=== PATIENT | female | born 1990 | race African-American/Black ===

== ENCOUNTER 2017-07-29 15:09 | Emergency (ER) | payer OTHER ==
--- NOTE | 2017-07-29 15:27 | PDOC ---
Rapid Medical Evaluation Time Seen by Provider: 07/29/17 15:25 Medical Evaluation: Allergies Allergy/AdvReac Type Severity Reaction Status Date / Time No Known Allergies Allergy Verified 07/29/17 15:25 I have performed a brief in-person evaluation of this patient. The patient presents with a chief complaint of: slipped and fell saturday night , falling on right hand Pertinent physical exam findings: minimal redness and tenderness of right wrist and thenar prominence I have ordered the following: xray right wrist and hand The patient will proceed to the ED for further evaluation.
[2017-07-29 15:28] VITALS: BP 113/75; PULSE 76; TEMP 98.3; BMI 32.3
--- NOTE | 2017-07-29 15:56 | PDOC ---
History of Present Illness - General History Source: Patient Exam Limitations: No Limitations - History of Present Illness Initial Comments: 07/29/17 16:14 The patient is a 26 year old female with no significant PMH who presents to the emergency department with right hand pain since earlier today. The patient reports that she was running up stairs going to work when she fell in front of her job. The patient reports that she fell on palm of her right hand. The patient reports that she did not experience any pain with the initial fall. She reports that after a little while she started to experience associated throbbing secondary to falling on her right hand. The patient reports that she noticed some associated bruising starting to appear as well. The patient reports that she is dominantly right handed. 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 The patient denies ant LOC, dizziness, numbness weakness or tingling sensation. The patient denies any fever, chills, nausea, vomit, diarrhea or constipation. The patient denies any urinary symptoms. The patient denies any other complaints. PAST MEDICAL HISTORY: no significant history PAST SURGICAL HISTORY: no significant history FAMILY HISTORY: no pertinent history SOCIAL HISTORY: Pt is employed. MEDICATIONS: reviewed ALLERGIES: As per nursing notes <Seth Triana - Last Filed: 07/29/17 16:14> <Nithya Garcia - Last Filed: 07/29/17 22:46> - General Chief Complaint: Injury Stated Complaint: FALL/ RT WRIST PAIN Time Seen by Provider: 07/29/17 15:25 Past History <Seth Triana - Last Filed: 07/29/17 16:14> - Past Medical History Asthma: Yes Cancer: No Cardiac Disorders: No COPD: No Diabetes: No HTN: No Seizures: No Thyroid Disease: No - Immunization History Immunization Up to Date: Yes - Suicide/Smoking/Psychosocial Hx Smoking Status: No Smoking History: Never smoked Have you smoked in the past 12 months: No Number of Cigarettes Smoked Daily: 0 Information on smoking cessation initiated: No Hx Alcohol Use: No Drug/Substance Use Hx: No Substance Use Type: None Hx Substance Use Treatment: No <Nithya Garcia - Last Filed: 07/29/17 22:46> - Past Medical History Allergies/Adverse Reactions: Allergies Allergy/AdvReac Type Severity Reaction Status Date / Time No Known Allergies Allergy Verified 07/29/17 15:25 Home Medications: Ambulatory Orders Ibuprofen 800 mg PO TID #30 tablet 07/29/17 Review of Systems - Review of Systems Able to Perform ROS?: Yes Comments:: 07/29/17 16:14 General: No fevers or chills, no weakness, no weight loss HEENT: No change in vision. No sore throat,. No ear pain CardioVascular: No chest pain or shortness of breath Respiratory:No cough, or wheezing. Gastrointestinal: no nausea, vomiting, diarrhea or constipation, No rectal bleeding Genitourinary: No dysuria, hematuria, or frequency Musculoskeletal: (+)right hand pain s/p fall with associated throbbing. Neurologic: No headache, vertigo, dizziness or loss of consciousness Psychiatric: nor depression Skin: No rashes or easy bruising Endocrine: no increased thirst or abnormal weight change Allergic: no skin or latex allergy All other systems reviewed and normal <Seth Triana - Last Filed: 07/29/17 16:14> *Physical Exam - Vital Signs Last Vital Signs Temp Pulse Resp BP Pulse Ox 98.3 F 76 18 113/75 100 07/29/17 15:25 07/29/17 15:25 07/29/17 15:25 07/29/17 15:25 07/29/17 15:25 - Physical Exam Comments: 07/29/17 16:14 GENERAL: The patient is awake, alert, and fully oriented, in no acute distress. HEAD: Normal with no signs of trauma. EYES: Pupils equal, round and reactive to light, extraocular movements intact, sclera anicteric, conjunctiva clear. EXTREMITIES:(+)bruising in the palmar aspect of thenar eminence. Negative watsons exam. Normal range of motion, no edema. NEUROLOGICAL: Normal speech, normal gait. PSYCH: Normal mood, normal affect. SKIN: Warm, Dry, normal turgor, no rashes or lesions noted. <Seth Triana - Last Filed: 07/29/17 16:14> - Vital Signs Last Vital Signs Temp Pulse Resp BP Pulse Ox 98.3 F 76 18 113/75 100 07/29/17 15:25 07/29/17 15:25 07/29/17 15:25 07/29/17 15:25 07/29/17 15:25 <Nithya Garcia - Last Filed: 07/29/17 22:46> Medical Decision Making - Medical Decision Making 07/29/17 15:56 A portion of this note was documented by scribe services under my direction. I have reviewed the details of the note, within reason, and agree with the documentation with the following case summary and management plan written by me. Patient is a 26-year-old female with past medical history of right wrist fracture, R hand dominent, present emergency department today complaining of right hand pain status post mechanical trip and fall with outstretched hand going up stairs. Exam with negative england sign, mild swelling to thenar eminence without tenderness to palpation. X-ray obtained shows no new fracture of the radius. Most likely a sprain at this time. We'll give wrist brace for support. Ortho referral given. Return precautions given. Patient received all discharge instructions and all questions were answered. <Nithya Garcia - Last Filed: 07/29/17 22:46> *DC/Admit/Observation/Transfer - Attestations Scribe Attestion: 07/29/17 16:15 Documentation prepared by Seth Triana, acting as medical van driver for Chuckie Bernstein MD. <Seth Triana - Last Filed: 07/29/17 16:14> - Discharge Dispostion Admit: No <Nithya Garcia - Last Filed: 07/29/17 22:46> Diagnosis at time of Disposition: Wrist pain, right - Discharge Dispostion Disposition: HOME Condition at time of disposition: Stable - Prescriptions Prescriptions: Ibuprofen 800 mg PO TID #30 tablet - Referrals Referrals: Lyle Abdi MD [Staff Physician] - - Patient Instructions Printed Discharge Instructions: DI for Wrist Pain Additional Instructions: Your x-ray today was negative for new fracture. Please wear the wrist brace to help with your pain. Please ice the area for 20 minute intervals for the next 24 hours. You may take Motrin 800 mg every 8 hours as needed for pain. Please follow up with orthopedics this week. A referral has been provided for you. Return to the emergency department if you have worsening pain, numbness and tingling in your hand, or have any changes in your symptoms. - Post Discharge Activity Forms/Work/School Notes: Back to Work
== END 2017-07-29 16:57 | disposition home or self-care (01) ==
LOC: JERFT 15:09
DX: M25.531 Pain in right wrist (principal); W10.8XXA Fall (on) (from) other stairs and steps, initial encounter; Y93.02 Activity, running; Y92.89 Other specified places as the place of occurrence of the external cause; Y99.8 Other external cause status
CPT/HCPCS: 73110-TC-RT-FY; 73130-TC-RT-FY; 99281-25

== ENCOUNTER 2018-01-03 12:01 | Emergency (ER) | payer OTHER ==
[2018-01-03 12:05] VITALS: BP 129/73; PULSE 102; TEMP 98.9; BMI 32.9
[2018-01-03] MEDS ORDERED: IBUPROFEN 100 MG/5 ML UNIT DOSE CUPS ONE (12:40)
[2018-01-03] MEDS ORDERED: IBUPROFEN 600 MG TABLET (FP) PO ONE (12:45)
--- NOTE | 2018-01-03 12:45 | PDOC ---
History of Present Illness - General Chief Complaint: Sore Throat Stated Complaint: SORE THROAT Time Seen by Provider: 01/03/18 12:13 History Source: Patient Exam Limitations: No Limitations Past History - Travel Traveled outside of the country in the last 30 days: No Close contact w/someone who was outside of country & ill: No - Past Medical History Allergies/Adverse Reactions: Allergies Allergy/AdvReac Type Severity Reaction Status Date / Time No Known Allergies Allergy Verified 01/03/18 12:03 Home Medications: Ambulatory Orders Ibuprofen Oral Suspension [Motrin Oral Suspension -] 800 mg PO Q8H #400 ml 01/03 Asthma: Yes Cancer: No Cardiac Disorders: No COPD: No Diabetes: No HTN: No Seizures: No Thyroid Disease: No - Immunization History Immunization Up to Date: Yes - Suicide/Smoking/Psychosocial Hx Smoking Status: No Smoking History: Never smoked Have you smoked in the past 12 months: No Number of Cigarettes Smoked Daily: 0 Hx Alcohol Use: No Drug/Substance Use Hx: No Substance Use Type: None Hx Substance Use Treatment: No Review of Systems - Review of Systems Able to Perform ROS?: Yes Comments:: 01/03/18 14:05 CONSTITUTIONAL: Absent: fever, chills, diaphoresis, generalized weakness, malaise, loss of appetite HEENT: Absent: rhinorrhea, nasal congestion, throat pain, throat swelling, difficulty swallowing, mouth swelling, ear pain, eye pain, visual Changes CARDIOVASCULAR: Absent: chest pain, loss of consciousness, palpitations, irregular heart rate, peripheral edema RESPIRATORY: Absent: cough, shortness of breath, dyspnea with exertion, orthopnea, wheezing, stridor, hemoptysis GASTROINTESTINAL: Absent: abdominal pain, abdominal distension, nausea, vomiting, diarrhea, constipation, melena, hematochezia GENITOURINARY: Absent: dysuria, frequency, urgency, hesitancy, hematuria, flank pain, genital pain MUSCULOSKELETAL: Absent: myalgia, arthralgia, joint swelling SKIN: Absent: rash, itching, pallor HEMATOLOGIC/IMMUNOLOGIC: Absent: easy bleeding, easy bruising, lymphadenopathy, frequent infections ENDOCRINE: Absent: unexplained weight gain, unexplained weight loss, heat intolerance, cold intolerance NEUROLOGIC: Absent: headache, focal weakness or paresthesias, dizziness, unsteady gait, seizure, mental status changes, bladder or bowel incontinence PSYCHIATRIC: Absent: anxiety, depression, suicidal or homicidal ideation, hallucinations. Is the patient limited Bahraini proficient: No *Physical Exam - Vital Signs Last Vital Signs Temp Pulse Resp BP Pulse Ox 98.9 F 102 H 18 129/73 99 01/03/18 12:03 01/03/18 12:03 01/03/18 12:03 01/03/18 12:03 01/03/18 12:03 - Physical Exam Comments: 01/03/18 14:06 GENERAL: Well developed, well nourished. Awake and alert. No acute distress. HEENT: Normocephalic, atraumatic. PERRLA, EOMI. No conjunctival pallor. Sclera are non- icteric. Moist mucous membranes. Oropharynx is clear. NECK: Supple. Full ROM. No JVD. Carotid pulses 2+ and symmetric, without bruits. No thyromegaly. No lymphadenopathy. CARDIOVASCULAR: Regular rate and rhythm. No murmurs, rubs, or gallops. Distal pulses are 2+ and symmetric. PULMONARY: No evidence of respiratory distress. Lungs clear to auscultation bilaterally. No wheezing, rales or rhonchi. ABDOMINAL: Soft. Non-tender. Non-distended. No rebound or guarding. No organomegaly. Normoactive bowel sounds. MUSCULOSKELETAL Normal range of motion at all joints. No bony deformities or tenderness. No CVA tenderness. EXTREMITIES: No cyanosis. No clubbing. No edema. No calf tenderness. SKIN: Warm and dry. Normal capillary refill. No rashes. No jaundice. NEUROLOGICAL: Alert, awake, appropriate. Cranial nerves 2-12 intact. No deficits to light touch and temperature in face, upper extremities and lower extremities. No motor deficits in the in face, upper extremities and lower extremities. Normoreflexic in the upper and lower extremities. Normal speech. Toes are down- going bilaterally. Gait is normal without ataxia. PSYCHIATRIC: Cooperative. Good eye contact. Appropriate mood and affect. *DC/Admit/Observation/Transfer Diagnosis at time of Disposition: Pharyngitis - Discharge Dispostion Disposition: HOME Condition at time of disposition: Stable Decision to Admit order: No - Referrals Referrals: Itz Hwang MD [Staff Physician] - - Patient Instructions Printed Discharge Instructions: DI for Pharyngitis/Tonsillopharyngitis -- Adult Additional Instructions: Your strep test was negative today. You do not need antibiotics at this time. A culture was sent for further evaluation. If you have a positive culture he will receive a phone call. You may take Motrin 800 mg every 8 hours as needed for pain. Warm tea and cough drops may help with her pain as well. Follow-up with her primary care doctor this week. Return to emergency department if you have worsening fevers, difficulty breathing, increased difficulty swallowing, or give any changes in her symptoms. - Post Discharge Activity Forms/Work/School Notes: Back to Work
== END 2018-01-03 14:14 | disposition home or self-care (01) ==
LOC: JERFT 12:01
DX: J02.9 Acute pharyngitis, unspecified (principal)
CPT/HCPCS: 87070; 87077; 87430; 99281-25

== ENCOUNTER 2018-02-06 13:03 | Emergency (ER) | payer OTHER ==
[2018-02-06 13:11] VITALS: BP 106/70; PULSE 77; TEMP 98.5; BMI 32.9
--- NOTE | 2018-02-06 14:55 | PDOC ---
History of Present Illness - General Chief Complaint: Pain Stated Complaint: Right wrist/forarm pain, swelling, tingling Time Seen by Provider: 02/06/18 14:22 History Source: Patient Exam Limitations: Clinical Condition - History of Present Illness Initial Comments: 02/06/18 14:50 Patient with no significant medication present with complaint of right forearm pain in bump to radial aspect of right forearm for 3 days which has been worsening. Patient denies any trauma or injury to wrist or hand. Timing/Duration: other (3 days) Past History - Past Medical History Allergies/Adverse Reactions: Allergies Allergy/AdvReac Type Severity Reaction Status Date / Time No Known Allergies Allergy Verified 02/06/18 13:11 Home Medications: Ambulatory Orders Naproxen 500 mg PO BID PRN #20 tablet 02/06/18 Asthma: Yes Cancer: No Cardiac Disorders: No COPD: No Diabetes: No HTN: No Seizures: No Thyroid Disease: No - Immunization History Immunization Up to Date: Yes - Suicide/Smoking/Psychosocial Hx Smoking Status: No Smoking History: Never smoked Have you smoked in the past 12 months: No Number of Cigarettes Smoked Daily: 0 Information on smoking cessation initiated: No Hx Alcohol Use: No Drug/Substance Use Hx: No Substance Use Type: None Hx Substance Use Treatment: No Review of Systems - Review of Systems Able to Perform ROS?: Yes Is the patient limited Azerbaijani proficient: No Constitutional: No: Weakness Respiratory: No: Symptoms reported Cardiac (ROS): No: Symptoms Reported ABD/GI: No: Symptoms Reported Musculoskeletal: Yes: See HPI, Muscle Pain (right forearm), Other (bump to radial aspect of forearm). No: Muscle Weakness Neurological: Yes: See HPI, Tingling (right fingers). No: Numbness, Paresthesia All Other Systems: Reviewed and Negative *Physical Exam - Vital Signs Last Vital Signs Temp Pulse Resp BP Pulse Ox 98.5 F 77 19 106/70 99 02/06/18 13:07 02/06/18 13:07 02/06/18 13:07 02/06/18 13:07 02/06/18 13:07 - Physical Exam Comments: 02/06/18 14:53 GENERAL: Well developed, well nourished. Awake and alert. No acute distress. CARDIOVASCULAR: Regular rate and rhythm. No murmurs, rubs, or gallops. PULMONARY: No evidence of respiratory distress. Lungs clear to auscultation bilaterally. No wheezing, rales or rhonchi. ABDOMINAL: Soft. Non-tender. Non-distended. No rebound or guarding. No organomegaly. Normoactive bowel sounds MUSCULOSKELETAL : 3 cm hard nonmobile tender induration to distal aspect of the radial aspect of right forearm. No erythema to area. No tenderness to right wrist or hands. EXTREMITIES: No cyanosis. No clubbing. No edema. No calf tenderness. SKIN: Warm and dry. Normal capillary refill. No rashes. No jaundice. NEUROLOGICAL: Alert, awake, appropriate. No motor deficits in the lower extremities. Gait is normal without ataxia. PSYCHIATRIC: Cooperative. Good eye contact. Appropriate mood and affect. General Appearance: Yes: Nourished, Appropriately Dressed. No: Apparent Distress ED Treatment Course - RADIOLOGY Radiology Studies Ordered: Category Date Time Status FOREARM- RIGHT [RAD] Stat Radiology 02/06/18 14:39 Ordered WRIST W/HAND-RIGHT* [RAD] Stat Radiology 02/06/18 14:39 Ordered Medical Decision Making - Medical Decision Making 02/06/18 14:55 Patient with no significant past medical history presented with complaint of painful nodule to distal aspect of right forearm which has been persistent for 3 days and worsening. Exam significant for 3 cm nodule to radial aspect of distal right forearm consistent with ganglion cyst. X-ray of right forearm and wrist ordered. Treat is on imaging results 02/06/18 15:40 x-rays of right arm and forarm shows no acute pathology. Patient will be discharge home on NSAIDS with orthopedics follow-up *DC/Admit/Observation/Transfer Diagnosis at time of Disposition: Ganglion cyst of dorsum of right wrist - Discharge Dispostion Disposition: HOME Condition at time of disposition: Stable Decision to Admit order: No - Prescriptions Prescriptions: Naproxen 500 mg PO BID PRN #20 tablet PRN Reason: wrist pain - Referrals Referrals: Lyle Abdi MD [Staff Physician] - - Patient Instructions Printed Discharge Instructions: Ganglion Cyst, DI Ganglion Cyst Additional Instructions: Your x-ray was negative. Take medication as prescribed for hand pain and swelling. Follow-up with orthopedics - Post Discharge Activity
== END 2018-02-06 15:48 | disposition home or self-care (01) ==
LOC: JERFT 13:03
DX: M67.431 Ganglion, right wrist (principal)
CPT/HCPCS: 73090-TC-RT-FY; 73110-TC-RT-FY; 73130-TC-RT-FY; 99281-25

== ENCOUNTER 2018-12-02 13:41 | Emergency (ER) | payer OTHER ==
[2018-12-02 13:53] VITALS: BP 107/61; PULSE 78; TEMP 98.1; BMI 31.6
[2018-12-02] MEDS ORDERED: CYCLOBENZAPRINE HCL 10 MG TABLET (FP) PO ONE (14:31)
[2018-12-02] MEDS ORDERED: KETOROLAC TROMETHAMINE 60 MG/2 ML VIAL IM ONE (14:31)
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
[2018-12-02] MEDS ORDERED: KETOROLAC TROMETHAMINE 60 MG/2 ML VIAL ONE (14:35)
[2018-12-02] MEDS ORDERED: CYCLOBENZAPRINE HCL 10 MG TABLET (FP) ONE (14:36)
== END 2018-12-02 14:56 | disposition home or self-care (01) ==
LOC: JERFT 13:41
PROC: 3E0233Z Introduction of Anti-inflammatory into Muscle, Percutaneous Approach (ICD-10-PCS; principal; 2018-12-02)
DX: S16.1XXA Strain of muscle, fascia and tendon at neck level, initial encounter (principal); V43.62XA Car passenger injured in collision with other type car in traffic accident, initial encounter; Y92.488 Other paved roadways as the place of occurrence of the external cause; Y93.89 Activity, other specified; Y99.8 Other external cause status
CPT/HCPCS: 99281-25

== ENCOUNTER 2019-03-16 21:40 | Emergency (ER) | payer OTHER ==
[2019-03-16 21:49] VITALS: BP 105/57; PULSE 86; TEMP 97.8; BMI 30.7
--- NOTE | 2019-03-17 00:25 | PDOC ---
Documentation entered by Radha Almeida SCRIBE, acting as scribe for Alie Reeder MD. Alie Reeder MD: This documentation has been prepared by the Juan Pablo bales Brenda, SCRIBE, under my direction and personally reviewed by me in its entirety. I confirm that the documentation accurately reflects all work, treatment, procedures, and medical decision making performed by me. History of Present Illness - General Chief Complaint: Injury Stated Complaint: 18 WEEKS Time Seen by Provider: 03/16/19 22:49 History Source: Patient Exam Limitations: No Limitations - History of Present Illness Initial Comments: 03/16/19 23:06 The patient is a 28 year old female (A3), 18 weeks , with no significant PMH who presents to the emergency department after having a fall down her steps. Patient reports feeling lightheaded and falling backwards, on her wooden steps, while going downwards. Patient is now complaining of lower back pain and slight abdominal pain. Last time patient saw OBGYN was March 06, states OBGYN has changed and does not know who it is currently. LMP was November 10. The patient denies vaginal bleeding or drainage. Denies chest pain, shortness of breath. Denies fever, chills, nausea, vomiting, diarrhea and constipation. Denies dysuria, frequency, urgency and hematuria. Allergies: NKA Past surgical history: None reported PCP: Iesha Oquendo Past History - Past Medical History Allergies/Adverse Reactions: Allergies Allergy/AdvReac Type Severity Reaction Status Date / Time No Known Allergies Allergy Verified 03/16/19 21:47 Home Medications: Ambulatory Orders Naproxen 500 mg PO BID PRN #20 tablet 02/06/18 Cyclobenzaprine HCl [Flexeril -] 10 mg PO HS #7 tablet 12/02/18 Ibuprofen [Motrin -] 600 mg PO QID #28 tablet 12/02/18 Asthma: Yes Cancer: No Cardiac Disorders: No COPD: No Diabetes: No HTN: No Seizures: No Thyroid Disease: No - Immunization History Immunization Up to Date: Yes - Psycho Social/Smoking Cessation Hx Smoking Status: No Smoking History: Never smoked Have you smoked in the past 12 months: No Number of Cigarettes Smoked Daily: 0 Hx Alcohol Use: No Drug/Substance Use Hx: No Substance Use Type: None Hx Substance Use Treatment: No Review of Systems - Review of Systems Able to Perform ROS?: Yes Comments:: 03/16/19 23:07 CONSTITUTIONAL: Absent: fever, no chills, no fatigue EYES: Absent: visual changes ENT: Absent: ear pain, no sore throat CARDIOVASCULAR: Absent: chest pain, no palpitations RESPIRATORY: Absent: cough, no SOB GI: (+) Mild abdominal pain Absent: abdominal pain, no nausea, no vomiting, no constipation, no diarrhea GENITOURINARY: Absent: dysuria, no frequency, no hematuria MUSKULOSKELETAL: (+) Lower back pain Absent: no arthralgia, no myalgia SKIN: Absent: rash NEURO: *Physical Exam - Vital Signs Last Vital Signs Temp Pulse Resp BP Pulse Ox 97.8 F 86 16 105/57 L 100 03/16/19 21:47 03/16/19 21:47 03/16/19 21:47 03/16/19 21:47 03/16/19 21:47 - Physical Exam 03/16/19 23:07 GENERAL: Well-appearing, well-nourished. No apparent distress. HEENT: No head trauma. Normocephalic, atraumatic. PERRL, EOM intact. CARDIOVASCULAR: Normal S1, S2. Regular rate and rhythm. PULMONARY: Clear to auscultation bilaterally. ABDOMEN: Soft, non-distended, non-tender. BACK: (+) lumbar paraspinal tenderness. No midline tenderness. No Cervical Spine tenderness. EXTREMITIES: Normal ROM in all four extremities. No gross deformities. SKIN: Warm, dry. No rash NEUROLOGICAL: No focal neurological deficits. ED Treatment Course - RADIOLOGY Radiology Studies Ordered: Category Date Time Status LIMITED US [US] Stat Ultrasound 03/16/19 23:06 Taken Medical Decision Making - Medical Decision Making 03/16/19 23:48 28 yo female slipped going down the stairs and fell onto her buttocks and back, no head trauma,stood up and has been ambulatory since the incident -denies any pelvic crampimg -no extremities deformities or pain she is receiving care and her last nanofabrication specialist visit was Mar 06 her LMP was Oct 12 PMH A3 03/17/19 00:24 US report SL IUP 18 weeks 5 days, FHT 139 bpm,normal ovaries,closed cervix, imp musculoskelal pain s/p p fall Discharge - Discharge Information Problems reviewed: Yes Clinical Impression/Diagnosis: Second trimester Low back pain Qualifiers: Chronicity: acute Back pain laterality: bilateral Sciatica presence: without sciatica Qualified Code(s): M54.5 - Low back pain Fall Qualifiers: Encounter type: initial encounter Qualified Code(s): W19.XXXA - Unspecified fall, initial encounter - Follow up/Referral Referrals: Iesha Oquendo [employer] CL[employer] [Primary Care Provider] - - Patient Discharge Instructions Patient Printed Discharge Instructions: DI for -- Discomforts and Remedies, DI for Low Back Pain Additional Instructions: please continue your care you may take tylenol for pain - Post Discharge Activity
== END 2019-03-17 01:25 | disposition home or self-care (01) ==
LOC: JER 21:40
DX: O26.892 Other specified pregnancy related conditions, second trimester (principal); Z3A.18 18 weeks gestation of pregnancy; M54.5 Low back pain; W18.39XA Other fall on same level, initial encounter; Y93.89 Activity, other specified; Y92.89 Other specified places as the place of occurrence of the external cause
CPT/HCPCS: 76815-TC; 99283-25

== ENCOUNTER 2020-11-08 12:20 | Emergency (ER) | payer OTHER ==
[2020-11-08 12:32] VITALS: BP 104/71; PULSE 76; TEMP 97.8; BMI 32.9
[2020-11-08 13:52] LABS: PH,URINE 6.5 (5.0-8.0); URINE APPEARANCE CLEAR; URINE BILIRUBIN NEGATIVE (NEGATIVE); URINE COLOR YELLOW; URINE GLUCOSE (UA) NEGATIVE (NEGATIVE); URINE KETONE NEGATIVE (NEGATIVE); URINE LEUK ESTERASE NEGATIVE (NEGATIVE); URINE NITRITE NEGATIVE (NEGATIVE); URINE PROTEIN NEGATIVE (NEGATIVE); URINE UROBILINOGEN 0.2 mg/dL (0.2-1.0)
[2020-11-08 13:59] LABS: HCG,QUALITATIVE URINE Positive
== END 2020-11-08 17:59 | disposition home or self-care (01) ==
LOC: JER 12:20
DX: O26.891 Other specified pregnancy related conditions, first trimester (principal); R10.9 Unspecified abdominal pain; Z3A.01 Less than 8 weeks gestation of pregnancy; V49.50XA Passenger injured in collision with unspecified motor vehicles in traffic accident, initial encounter
CPT/HCPCS: 36415; 76817-TC; 81003; 84702; 84703; 87086; 99284-25

== ENCOUNTER 2021-03-08 01:35 | Emergency (ER) | payer OTHER ==
[2021-03-08 01:56] VITALS: BMI 32.4
[2021-03-08] MEDS ORDERED: ACETAMINOPHEN 325 MG TABLET (FP) PO ONE (02:21)
[2021-03-08] MEDS ORDERED: ACETAMINOPHEN 325 MG TABLET (FP) ONE (02:26)
[2021-03-08 04:59] VITALS: BP 112/64; PULSE 77; TEMP 97.7
== END 2021-03-08 05:20 | disposition home or self-care (01) ==
LOC: JER 01:35
DX: T59.91XA Toxic effect of unspecified gases, fumes and vapors, accidental (unintentional), initial encounter (principal)
CPT/HCPCS: 82375; 99283-25

== ENCOUNTER 2021-07-05 08:05 | Inpatient (IN) | payer OTHER ==
[2021-07-05] MEDS ORDERED: BUTORPHANOL TARTRATE 1 MG/ML VIAL IVPB PRN (08:30)
[2021-07-05] MEDS ORDERED: PROMETHAZINE HCL 25 MG/1 ML VIAL IVPUSH ONE (08:30)
[2021-07-05] MEDS ORDERED: DINOPROSTONE 10 MG VAGINAL SUPPOSITORY VG STA (08:50)
[2021-07-05 09:12] VITALS: BMI 36.6
[2021-07-05] MEDS: ELECTROLYTE-148 SOLN 1,000 ML IV SCH (10:30)
[2021-07-05] MEDS ORDERED: OXYTOCIN 30 UNITS in 0.9% NS 30 UNIT/500 ML INFUS.BAG IVPB SCH (22:45)
[2021-07-05] MEDS ORDERED: OXYTOCIN 30 UNITS in 0.9% NS 30 UNIT/500 ML INFUS.BAG IVPB ONE (23:15)
[2021-07-06] MEDS ORDERED: PROMETHAZINE HCL 25 MG/1 ML VIAL ONE (02:11)
[2021-07-06] MEDS ORDERED: BUTORPHANOL TARTRATE 2 MG/ML VIAL ONE (02:11)
[2021-07-06] MEDS ORDERED: FENTANYL/BUPIVACAINE/NS/PF - PCEA - 50 ML DISP.SYRIN EP ONE (08:38)
[2021-07-06] MEDS: ELECTROLYTE-148 SOLN 1,000 ML IV SCH (09:40)
[2021-07-06] MEDS ORDERED: OXYTOCIN 20 UNITS in 0.9% NS 20 UNIT/1,000 ML INFUS.BAG IV ONE (10:17)
[2021-07-06] MEDS ORDERED: METHYLERGONOVINE MALEATE 0.2 MG/1 ML AMP IM PRN (10:28)
[2021-07-06] MEDS ORDERED: oxyCODONE HCL 5 MG TABLET PO PRN (10:28)
[2021-07-06] MEDS ORDERED: BENZOCAINE 20% 57 GM BOTTLE TP PRN (10:28)
[2021-07-06] MEDS ORDERED: BENZOCAINE 28 GM HEMORRHOIDAL OINTMENT TP PRN (10:28)
[2021-07-06] MEDS ORDERED: BISACODYL 10 MG SUPP.RECT RC PRN (10:28)
[2021-07-06] MEDS ORDERED: WITCH HAZEL 50% (TUCKS) 40 PAD/JAR PAD TP PRN (10:28)
[2021-07-06] MEDS ORDERED: ACETAMINOPHEN 325 MG TABLET (FP) PO PRN (10:28)
[2021-07-06] MEDS ORDERED: OXYTOCIN 20 UNITS in 0.9% NS 20 UNIT/1,000 ML INFUS.BAG IV SCH (10:30)
[2021-07-06 11:28] LABS: CORD BASE EXCESS -7.1 mmol/L (0-2); CORD HCO3 21.8 mmHg (20-29); CORD PCO2 60.2 mmHg (30-78); CORD pH 7.176 (7.14-7.44)
[2021-07-06 11:31] LABS: CORD BASE EXCESS -4.3 mmol/L (0-2); CORD PCO2 39.4 mmHg (30-78); CORD pH 7.345 (7.14-7.44)
[2021-07-06] MEDS ORDERED: NALOXONE HCL 0.4 MG/ML VIAL IVPUSH PRN (11:50)
[2021-07-06] MEDS ORDERED: FENTANYL/BUPIVACAINE/NS/PF - PCEA - 50 ML DISP.SYRIN EP SCH (12:00)
[2021-07-06] MEDS: FERROUS SO4 325 MG TABLET (FP) PO SCH ×2 (13:01→17:28)
[2021-07-06] MEDS: IBUPROFEN 600 MG TABLET (FP) PO PRN (14:56)
[2021-07-07 07:39] LABS: BASO % 0.4 % (0-2.0); HEMATOCRIT 24.4 % (32.4-45.2); HEMOGLOBIN 7.7 GM/dL (10.7-15.3); LYMPH % 26.5 % (8-40); MCH 22.4 pg (25.7-33.7); MCHC 31.8 g/dl (32.0-36.0); MEAN CELL VOLUME 70.4 fl (80-96); MEAN PLT VOLUME 8.5 fl (7.5-11.1); MONO % 7.1 % (3.8-10.2); PLATELET COUNT 172 10^3/uL (134-434); RBC 3.46 M/mm3 (3.60-5.2); RDW 22.1 % (11.6-15.6); WHITE BLOOD COUNT 7.8 K/mm3 (4.0-10.0)
[2021-07-07] MEDS: FERROUS SO4 325 MG TABLET (FP) PO SCH ×3 (09:24→18:11)
[2021-07-07] MEDS: PRENATAL VITAMINS W/ FOLIC ACID TABLET (FP) PO SCH (09:24)
[2021-07-07] MEDS ORDERED: SENNOSIDES/DOCUSATE COMBO (SENNA PLUS) TABLET (UD) PO PRN (22:00)
[2021-07-07] MEDS: IBUPROFEN 600 MG TABLET (FP) PO PRN (22:28)
[2021-07-08 08:11] VITALS: BP 119/74; PULSE 85; TEMP 98.4
[2021-07-08] MEDS: FERROUS SO4 325 MG TABLET (FP) PO SCH ×2 (08:33→12:16)
[2021-07-08] MEDS: PRENATAL VITAMINS W/ FOLIC ACID TABLET (FP) PO SCH (09:35)
== END 2021-07-08 13:25 | disposition home or self-care (01) | DRG 560 ==
LOC: JLDR 08:05 → J3W 07-06 12:35
PROVIDERS: ADMIT Obstetrics & Gynecology; ATTEND Obstetrics & Gynecology
PROC: 3E0P7VZ Introduction of Hormone into Female Reproductive, Via Natural or Artificial Opening (ICD-10-PCS; principal; 2021-07-05)
PROC: 10E0XZZ Delivery of Products of Conception, External Approach (ICD-10-PCS; 2021-07-06)
DX: O99.02 Anemia complicating childbirth (principal); D64.9 Anemia, unspecified; O70.0 First degree perineal laceration during delivery; O69.81X0 Labor and delivery complicated by cord around neck, without compression, not applicable or unspecified; Z3A.39 39 weeks gestation of pregnancy; Z37.0 Single live birth
CPT/HCPCS: 36415; 36600; 59409; 80048; 82803; 85025; 85610; 85730; 86780; 86850; 86900; 86901; C9803-CS; U0003; U0005